=== PATIENT | female | born 1990 ===

== ENCOUNTER 2018-05-20 09:42 | Emergency (ER) | payer SELFPAY ==
[2018-05-20 09:59] VITALS: RESP 18; TEMP 99.1
[2018-05-20] MEDS ORDERED: Naproxen 550 mg Tab PO STA (10:00)
[2018-05-20] MEDS ORDERED: Naproxen 550 mg Tab PO ONE (10:04)
--- NOTE | 2018-05-20 10:17 | C.PDOC ---
History Of Present Illness 28 year old female presents to the ED for evaluation of right ankle pain s/p injury prior to arrival. Patient states she was walking, slipped and fell twisting her right ankle. Denies other injuries, head trauma, loss of consciousness, tingling, numbness, and any other associated symptoms. Time Seen by Provider: 05/20/18 09:43 Chief Complaint (Nursing): Lower Extremity Problem/Injury History Per: Patient History/Exam Limitations: no limitations Onset/Duration Of Symptoms: Mins (prior to arrival) Current Symptoms Are (Timing): Still Present Past Medical History Reviewed: Historical Data, Nursing Documentation, Vital Signs Vital Signs: Last Vital Signs Temp 99.1 F 05/20/18 09:55 Pulse 61 05/20/18 09:55 Resp 18 05/20/18 09:55 BP 128/79 05/20/18 09:55 Pulse Ox 98 05/20/18 09:55 - Medical History PMH: Bronchitis Denies: Chronic Kidney Disease - [facility] Procedures INJECT/INFUSE NEC (04/08/15) INTRODUCTION OF SERUM/TOX/VACCINE INTO MUSCLE, PERC APPROACH (05/11/15) Family History: States: Unknown Family Hx - Social History Hx Tobacco Use: No Hx Alcohol Use: Yes Hx Substance Use: No - Immunization History Hx Tetanus Toxoid Vaccination: Yes Hx Influenza Vaccination: No Hx Pneumococcal Vaccination: No Review Of Systems Constitutional: Negative for: Other (loss of consciousness.) Musculoskeletal: Positive for: Other (right ankle pain. ) Neurological: Negative for: Weakness, Numbness, Incoordination Physical Exam - Physical Exam Appears: Well, Non-toxic Skin: Normal Color, Warm, Dry Head: Atraumatic, Normacephalic Eye(s): bilateral: Normal Inspection Extremity: Normal ROM (pain with range of motion to the right ankle.), Tenderness (to the right ankle.), Capillary Refill (less than 2 seconds.), No Deformity, Swelling (to the right ankle. ), No Other (no bony hip tenderness. no knee tenderness. ) Neurological/Psych: Oriented x3, Normal Speech ED Course And Treatment O2 Sat by Pulse Oximetry: 98 (RA) Pulse Ox Interpretation: Normal - Other Rad Ankle X-ray X-Ray: Viewed By Me, Read By Radiologist Interpretation: FINDINGS: BONES: No acute displaced fracture. JOINTS: No dislocation. SOFT TISSUES: Soft tissue swelling. No evidence of radiopaque foreign body. OTHER FINDINGS: None. IMPRESSION: Soft tissue swelling. No acute displaced fracture, dislocation, or significant joint effusion identified. If symptoms persist or if there is clinical concern, x-ray follow-up in 7-10 days should be considered. Medical Decision Making Medical Decision Making: Plan: -Ankle X-ray LT & RT Naproxen IMPRESSION: Soft tissue swelling. No acute displaced fracture, dislocation, or significant joint effusion identified. If symptoms persist or if there is clinical concern, x-ray follow-up in 7-10 days should be considered. Progress/Update: Patient aware of the need to follow-up for repeat xrays if persistent pain. Patient placed in an air cast. PT/OT evaluated. She was given additional pain medication and was discharged to follow-up [facility] PMD after she ambulated with walker Disposition - Disposition Disposition: HOME/ ROUTINE Disposition Time: 11:29 Condition: GOOD Additional Instructions: Follow-up with your PMD within 2 days. Motrin for pain. Return to ED if condition worsens. Rest, ice, compress and elevate. You will need repeat imaging for persistent pain. Instructions: Ankle Sprain Forms: [facility] (Armenian), Work Excuse - Clinical Impression Clinical Impression: High ankle sprain - Scribe Statement The provider has reviewed the documentation as recorded by the Scribe (Valarie Murry) Provider Attestation: All medical record entries made by the Scribe were at my direction and personally dictated by me. I have reviewed the chart and agree that the record accurately reflects my personal performance of the history, physical exam, medical decision making, and the department course for this patient. I have also personally directed, reviewed, and agree with the discharge instructions and disposition.
--- NOTE | 2018-05-20 11:40 | RAD ---
PROCEDURE: Right Ankle Radiographs. HISTORY: fall, ankle pain COMPARISON: None FINDINGS: BONES: No acute displaced fracture. JOINTS: No dislocation. SOFT TISSUES: Soft tissue swelling. No evidence of radiopaque foreign body. OTHER FINDINGS: None. IMPRESSION: Soft tissue swelling. No acute displaced fracture, dislocation, or significant joint effusion identified. If symptoms persist or if there is clinical concern, x-ray follow-up in 7-10 days should be considered.
[2018-05-20] MEDS ORDERED: Oxycodone/Acetaminophen 5/325 mg Tab PO STA (12:21)
[2018-05-20] MEDS ORDERED: Oxycodone/Acetaminophen 5/325 mg Tab ONE (12:31)
[2018-05-20 12:43] VITALS: BP 118/79; PULSE 67
[2018-05-20 12:48] VITALS: O2SAT 98
== END 2018-05-20 12:50 | disposition home or self-care (01) ==
LOC: C.ER 09:42
DX: S93.401A Sprain of unspecified ligament of right ankle, initial encounter (principal); W01.0XXA Fall on same level from slipping, tripping and stumbling without subsequent striking against object, initial encounter
CPT/HCPCS: 29515; 73610; 97116; 97162; 99285; G8978; G8979